=== PATIENT | male | born 1990 | race Caucasian/White ===

== ENCOUNTER 2020-10-04 09:23 | Emergency (ER) | payer OTHER ==
[2020-10-04 09:38] VITALS: BP 143/74
[2020-10-04] MEDS ORDERED: CIPROFLOX/DEXAMETH OTIC DROPS RIGHTEAR STA (10:23)
--- NOTE | 2020-10-04 11:13 | ED Physician Documentation ---
PD HPI HEENT - Stated complaint Stated Complaint: EAR PX - Chief complaint Chief Complaint: Heent - History obtained from History obtained from: Patient - History of Present Illness Timing - onset: How many days ago (5) Timing - duration: Days (5) Timing - details: Gradual onset, Still present Location: Right ear Improves: Medication Worsens: Everything Associated symptoms: Congestion. 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 He has not had relief of his pain in fact the pain is gotten worse. He has a feeling of muffled hearing and pain in the ears. He was seen at the [facility] and a consideration for otitis media in addition to the OE was made but not treated. Review of Systems Constitutional: denies: Fever Eyes: denies: Decreased vision Ears: reports: Loss of hearing, Ear pain, Drainage/discharge Nose: reports: Congestion Throat: denies: Sore throat Cardiac: denies: Chest pain / pressure, Palpitations Respiratory: denies: Dyspnea GI: denies: Nausea, Vomiting PD PAST MEDICAL HISTORY - Past Medical History Past Medical History: No - Past Surgical History Past Surgical History: No - Present Medications Home Medications: Ambulatory Orders Medication Instructions Recorded Confirmed Amox/Clav 875/125 [Augmentin] 1 each PO Q12H #20 tablet 10/04/20 Ciproflox/Dexameth Otic Drops 4 drops OT BID #7.5 ml 10/04/20 [Ciprodex Otic Drops] - Allergies Allergies/Adverse Reactions: Allergies Allergy/AdvReac Type Severity Reaction Status Date / Time No Known Drug Allergies Allergy Verified 10/04/20 09:38 - Social History Does the pt smoke?: No Smoking Status: Never smoker Does the pt drink ETOH?: No Does the pt have substance abuse?: No - Immunizations Immunizations are current?: Yes - POLST Patient has POLST: No PD ED PE NORMAL - Vitals Vital signs reviewed: Yes (hypertensive) - General General: Alert and oriented X 3, Well developed/nourished, Other (Appears to be in pain with secondary school registrar 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 I am not able to visualize the tympanic membrane on the right side. On the left side there is some inflammation in the canal there is inflammation to the tympanic membrane as well. Consistent with OM) - Neck Neck: Supple, no meningeal sign, No bony TTP - Cardiac Cardiac: RRR, No murmur - Respiratory Respiratory: No respiratory distress, Clear bilaterally - Derm Derm: Normal color, Warm and dry, No rash - Extremities Extremities: No deformity, No edema - Neuro Neuro: Alert and oriented X 3, felt cementer 2-12 intact, No motor deficit, No sensory deficit, Normal speech Eye Opening: Spontaneous Motor: Obeys Commands Verbal: Oriented GCS Score: 15 - Psych Psych: Normal mood, Normal affect Results - Vitals Vitals: Vital Signs - 24 hr 10/04/20 09:33 Temperature 36.3 C L Heart Rate 66 Respiratory 15 Rate Blood Pressure 143/74 H O2 Saturation 99 Oxygen O2 Source Room air PD MEDICAL DECISION MAKING - ED course Complexity details: considered differential, d/w patient ED course: 29-year-old male with otitis externa not responding to Cortisporin otic. A Fuchs ear wick is placed and he is administered Ciprodex. He appears to have otitis media along with otitis externa and we have added Augmentin into his treatment regimen. Departure - Departure Disposition: 01 Home, Self Care Clinical Impression: Otitis externa Qualifiers: Otitis externa type: swimmer's ear Chronicity: acute Laterality: bilateral Qualified Code(s): H60.333 - Swimmer's ear, bilateral Condition: Stable Instructions: ED Otitis Media Acute Adult, ED Otitis Externa Follow-Up: JENNIFER DIAZ DO [Primary Care Provider] - Prescriptions: Amox/Clav 875/125 [Augmentin] 1 each PO Q12H #20 tablet Ciproflox/Dexameth Otic Drops [Ciprodex Otic Drops] 4 drops OT BID #7.5 ml Comments: Today it appears there is infection both in the middle ear and in the external ear canal. Use the Ciprodex as prescribed and start the Augmentin.There is a wick in the right ear and this will need to be removed in 1 to 2 days.
== END 2020-10-04 11:33 | disposition home or self-care (01) ==
LOC: ED 09:23
DX: H60.333 Swimmer's ear, bilateral (principal)
CPT/HCPCS: 99282; 99284; A9270